=== PATIENT | male | born 1935 | race Caucasian/White ===

== ENCOUNTER 2022-10-17 15:20 | Inpatient (IN) | payer MEDICARE, OTHER ==
[~2022-10-17] VITALS: Ht 175.3 cm; Wt 73.9 kg
[2022-10-17] VITALS (18 sets, daily range): BP systolic 85–162; BP diastolic 38–75
--- NOTE | 2022-10-17 15:25 | NUR ---
BIBRA 100 FROM A SNF FOR INCREASED ALTERED MENTATION X1HOUR, PT IS HYPOTENSIVE, AND WARM TO TOUCH. TEMP IS 100.1 UPON ARRIVAL. PT A&OX0, RESPONSIVE TO PAIN AND SPEECH. ATTACHED TO MONITOR. AWAITING MD MRAIEE.
--- NOTE | 2022-10-17 15:52 | NUR ---
PT TAKEN TO CT VIA [facility]
[2022-10-17] MEDS ORDERED: CEFTRIAXONE 1GM BAG (ER ONLY) 50 ML IV ONE ×2 (15:57→16:00)
--- NOTE | 2022-10-17 15:58 | NUR ---
PT RETURNED FROM CT
[2022-10-17] MEDS ORDERED: IV NS 0.9% 500 ML BAG IV ONE (16:00)
--- NOTE | 2022-10-17 16:00 | NUR ---
X RAY AT BEDSIDE
[2022-10-17 16:06] LABS: BASOPHILS % (AUTO) 0.2 % (0.0-2.0); EOSINOPHILS % (AUTO) 0.1 % (0.0-6.0); HEMATOCRIT 25 % (39-51); HEMOGLOBIN 7.9 g/dL (13.5-17.5); LYMPHOCYTES # (AUTO) 1.4 K/uL (0.8-4.8); LYMPHOCYTES % (AUTO) 8.8 % (20.0-44.0); MEAN CORPUSCULAR HGB CONC 31 g/dl (31.0-36.0); MEAN CORPUSCULAR VOLUME 89 fL (80-96); MONOCYTES # (AUTO) 0.6 K/uL (0.1-1.30); MONOCYTES % (AUTO) 3.6 % (2.0-12.0); NEUTROPHILS # (AUTO) 13.8 K/uL (1.8-8.9); NEUTROPHILS % (AUTO) 87.3 % (43.0-81.0); PLATELET COUNT (AUTO) 253 K/uL (150-450); RED BLOOD CELL COUNT(AUTO) 2.85 MIL/uL (4.5-6.0); WHITE BLOOD COUNT (AUTO) 15.8 K/uL (4.3-11.0)
--- NOTE | 2022-10-17 16:09 | NUR ---
ZONIA COLLECTED AND SENT
[2022-10-17 16:21] LABS: ALANINE AMINOTRANSFERASE 9 U/L (12-78); ALBUMIN 1.8 g/dL (3.4-5.0); ALKALINE PHOSPHATASE 136 U/L (46-116); ASPARTATE AMINOTRANSFERASE 13 U/L (15-37); BILIRUBIN,DIRECT 0.6 mg/dL (0.0-0.2); BILIRUBIN,TOTAL 0.9 mg/dL (0.2-1.0); CALCIUM, SERUM 8.6 mg/dL (8.5-10.1); CARBON DIOXIDE 21 mmol/L (21-32); CHLORIDE 103 mmol/L (98-107); CREATININE 4.2 mg/dL (0.6-1.3); GLUCOSE 108 mg/dL (74-106); POTASSIUM 4.7 mmol/L (3.5-5.1); SODIUM SERUM 135 mmol/L (136-145); TOTAL PROTEIN, SERUM 6.3 g/dL (6.4-8.2); UREA NITROGEN, BLOOD 43 mg/dL (7-18)
--- NOTE | 2022-10-17 16:57 | NUR ---
URINE COLLECTED AND SENT
--- NOTE | 2022-10-17 17:16 | NUR ---
BED GIVEN 253
[2022-10-17] MEDS ORDERED: IV NS 0.9% 1,000 ML BAG IV ONE (17:30)
[2022-10-17] MEDS ORDERED: IV NS 0.9% 250 ML BAG IV ONE (17:30)
--- NOTE | 2022-10-17 17:51 | NUR ---
REPORT GIVEN TO STEPHANIE FOR JAIME
--- NOTE | 2022-10-17 18:10 | NUR ---
Pt admitted to ICU from ER. Urosepsis, HOTN Pt placed on monitor upon arrival. No Resp Distress noted Cont IVF hydration VSS, afebrile. Follow up admitting orders
--- NOTE | 2022-10-17 18:11 | NUR ---
PT TRANSPORTED TO ICU WITH ACLS PROTOCOLS IN PLACE, HANDED OFF TO LYDIA BROWN
[2022-10-17 18:15] LABS: COLOR,URINE AMBER (YELLOW)
[2022-10-17 18:17] LABS: BILIRUBIN,URINE NEGATIVE (NEGATIVE); LEUKOCYTE ESTERASE ,URINE 3+ (NEGATIVE); NITRITE, URINE NEGATIVE (NEGATIVE); PROTEIN,URINE 3+ mg/dl (NEGATIVE); UGLUCOSE NEGATIVE (NEGATIVE); UROBILINOGEN,URINE 0.2 EU/dL (0.2)
[2022-10-17 18:22] LABS: RBC,URINE 81-100 /HPF (0-2)
[2022-10-17 18:23] LABS: BACTERIA,URINE 3+ /HPF (None Seen); SQUAMOUS EPITHELIAL CELL,UR 0-2 /HPF (None Seen); WBC,URINE 51-80 /HPF (0-3)
[2022-10-17] MEDS ORDERED: MORPHINE SULFATE INJ 2 MG/ML DISP.SYRIN IV PRN (18:30)
[2022-10-17] MEDS ORDERED: ACETAMINOPHEN 325 MG TABLET PO PRN (18:30)
[2022-10-17] MEDS ORDERED: ALBUMIN 25% 25 GM in PREMIX 1 EA IV SCH (18:30)
[2022-10-17] MEDS ORDERED: ONDANSETRON HCL/PF 4 MG/2 ML VIAL IVP PRN (18:30)
[2022-10-17] MEDS ORDERED: CEFEPIME 2 GM in IV D5W 100 ML IV ONE (19:00)
[2022-10-17] MEDS: IV NS 0.9% 1,000 ML IV SCH (19:02)
[2022-10-17] MEDS ORDERED: NOREPINEPHRINE 8 MG in IV NS 0.9% 242 ML IV PRN (19:30)
--- NOTE | 2022-10-17 20:00 | NUR ---
Received patient lethargic,confused non verbal non interactive.DX: AMS,UTI and HYPOTENTION.SR with low BP awaiting med from pharmacy.Patient breathing even and unlabored.Saturation 92%-95% on RA.No acute distress noted.FC to gravity Safety precaution maintain.Call light at bedside.Bed Alarm on.Turned and repositioned. Continue monitoring.
[2022-10-17 20:17] LABS: BAND % (MANUAL) 16 % (0.0-5.0); LYMPHOCYTES % (MANUAL) 10 % (16-48); MONOCYTES % (MANUAL) 3 % (0-11.0); NEUTROPHILS % (MANUAL) 71 (42-76)
--- NOTE | 2022-10-17 20:50 | NUR ---
Received call from lab patient Lactic Acid 3.0 message sent to .No orders received.
[2022-10-17] MEDS ORDERED: HEPARIN SODIUM, PORCINE 5000 UNITS/1 ML VIAL SQ SCH (21:00)
[2022-10-18] VITALS (93 sets, daily range): BP systolic 84–140; BP diastolic 42–69
[2022-10-18 04:28] LABS: BASOPHILS % (AUTO) 0.3 % (0.0-2.0); EOSINOPHILS % (AUTO) 0.1 % (0.0-6.0); LYMPHOCYTES # (AUTO) 1.9 K/uL (0.8-4.8); LYMPHOCYTES % (AUTO) 12.4 % (20.0-44.0); MEAN CORPUSCULAR HGB CONC 32 g/dl (31.0-36.0); MEAN CORPUSCULAR VOLUME 87 fL (80-96); MONOCYTES # (AUTO) 0.7 K/uL (0.1-1.30); MONOCYTES % (AUTO) 4.4 % (2.0-12.0); NEUTROPHILS # (AUTO) 12.9 K/uL (1.8-8.9); NEUTROPHILS % (AUTO) 82.8 % (43.0-81.0); PLATELET COUNT (AUTO) 217 K/uL (150-450); RED BLOOD CELL COUNT(AUTO) 2.06 MIL/uL (4.5-6.0); WHITE BLOOD COUNT (AUTO) 15.6 K/uL (4.3-11.0)
[2022-10-18 04:46] LABS: HEMATOCRIT 18 % (39-51); HEMOGLOBIN 5.8 g/dL (13.5-17.5)
[2022-10-18 04:52] LABS: ALANINE AMINOTRANSFERASE 10 U/L (12-78); ALBUMIN 1.6 g/dL (3.4-5.0); ALKALINE PHOSPHATASE 107 U/L (46-116); ASPARTATE AMINOTRANSFERASE 13 U/L (15-37); BILIRUBIN,TOTAL 0.4 mg/dL (0.2-1.0); CALCIUM, SERUM 7.8 mg/dL (8.5-10.1); CARBON DIOXIDE 22 mmol/L (21-32); CHLORIDE 108 mmol/L (98-107); CREATININE 3.7 mg/dL (0.6-1.3); GLUCOSE 113 mg/dL (74-106); MAGNESIUM 1.7 mg/dL (1.8-2.4); PHOSPHORUS 4.2 mg/dL (2.5-4.9); POTASSIUM 4.6 mmol/L (3.5-5.1); SODIUM SERUM 138 mmol/L (136-145); TOTAL PROTEIN, SERUM 5.5 g/dL (6.4-8.2); UREA NITROGEN, BLOOD 45 mg/dL (7-18)
[2022-10-18] MEDS: IV NS 0.9% 1,000 ML IV SCH (05:17)
--- NOTE | 2022-10-18 05:40 | NUR ---
Patient AM labs resulted H/H 5.8.Message sent to DR. Smith with orders received and carried out.No active bleeding noted.VS stable.Turned and repositioned to comfort.IVF infusing well.Adequate urine output no BM noted.Continue to monitor.
--- NOTE | 2022-10-18 06:58 | NUR ---
WOUND CARE CONSULT: PT PRESENTS WITH RAISED LESION TO LEFT HIP AND SACRAL INTACT DEEP TISSUE INJURY, PRESENT ON ADMISSION. DEFER TO PMD FOR LESION, UNKNOWN ETIOLOGY. DISCUSSED SKIN PROTECTION RECOMMENDATIONS WITH NURSING STAFF. JAY SONG. IN AGREEMENT WITH PLAN OF CARE. Addendum: 10/18/22 at 0659 by MADELINE GRIDER WNDNU Amended: Links added.
[2022-10-18] MEDS ORDERED: Z GUARD REMEDY 4 OZ OINT TP PRN (07:00)
--- NOTE | 2022-10-18 07:00 | NUR ---
RN NOTES RECEIVED PT ON BED, DRAWAZY , FOLLOWS COMMAND, CONFUSED , VERBALLY RESPONDING , ON RA, O SAT WNL, NO SOB NOTED, THOMPSON DRAINING TO GRAVITY WITH CLOUDY URINE, IV SITES CDI, IVF AT 75CC/HR RUNNING , SR UP x3. CALL LIGHT WITHIN EASY REACH, BED LOCKED AND IN LOWEST POSITION, CONTINUE TO MONITOR
[2022-10-18 07:32] LABS: HEMOGLOBIN 5.8 g/dL (13.5-17.5)
[2022-10-18] MEDS: DOCUSATE SODIUM LIQ 100 MG/10 ML UDC PO SCH ×3 (08:09→17:03)
[2022-10-18] MEDS: POLYETHYLENE GLYCOL 3350 17 GM POWD.PACK PO SCH ×2 (08:09→08:24)
--- NOTE | 2022-10-18 08:25 | NUR ---
RN NOTES PT IS LETHARGIC , VALERIE RISK FOR ASPIRATION, MORNING PO MEDS HELD PER DR ANGELIKA PENG
--- NOTE | 2022-10-18 09:00 | NUR ---
RN NOTES DR CARNEY NOTIFIED REGRADING MG =1.7 , NOW NEW ORDER RECEIVED
[2022-10-18] MEDS: PANTOPRAZOLE 40 MG VIAL IV SCH ×2 (09:05→17:03)
[2022-10-18] MEDS ORDERED: VANCOMYCIN 1 GM in IV D5W 250ml IV SCH (11:00)
--- NOTE | 2022-10-18 12:00 | NUR ---
RN NOTES FAMILY AT THE BEDSIDE, REQUESTING TO TALK TO MD, DR CARNEY NOTIFIED, PT RECEIVING ONE UNIT OF PRBC, VSS STABLE CONTINUE TO MONITOR .
[2022-10-18] MEDS ORDERED: ACET-2605 PO ×2 (13:05)
[2022-10-18] MEDS ORDERED: LORA-259 PO (13:05)
[2022-10-18] MEDS ORDERED: HYDR-4209 PO (13:05)
[2022-10-18] MEDS ORDERED: FERR325T23 PO (13:05)
[2022-10-18] MEDS ORDERED: BETH50TA2 PO (13:05)
[2022-10-18] MEDS ORDERED: MELA5TAB PO (13:05)
[2022-10-18] MEDS ORDERED: MULT-447 PO (13:05)
[2022-10-18] MEDS ORDERED: MAGN400O6 PO (13:05)
[2022-10-18] MEDS ORDERED: CRAN425C6 PO (13:05)
[2022-10-18] MEDS ORDERED: ENOX40DI SQ (13:05)
[2022-10-18] MEDS ORDERED: METO25TA20 PO (13:05)
[2022-10-18] MEDS ORDERED: DOCU-141 PO (13:05)
[2022-10-18] MEDS ORDERED: CLON1PAT12 TP (13:05)
[2022-10-18] MEDS ORDERED: PANT40TA2 PO (13:05)
[2022-10-18] MEDS ORDERED: ACET-868 PO (13:05)
[2022-10-18] MEDS ORDERED: EPOE200011 SQ (13:05)
[2022-10-18] MEDS ORDERED: ASCO-352 PO (13:05)
[2022-10-18] MEDS ORDERED: CHOL100043 PO (13:05)
[2022-10-18] MEDS ORDERED: ALBU2.5V38 NEB (13:05)
[2022-10-18] MEDS ORDERED: PIPERACILLIN /TAZOBACTAM 2.25 G in IV D5W 50 ML IV ONE (15:00)
[2022-10-18] MEDS: PIPERACILLIN /TAZOBACTAM 2.25 G in IV D5W 50 ML IV SCH ×2 (15:01→20:23)
[2022-10-18 15:50] LABS: BAND % (MANUAL) 8 % (0.0-5.0); LYMPHOCYTES % (MANUAL) 15 % (16-48); MONOCYTES % (MANUAL) 5 % (0-11.0); NEUTROPHILS % (MANUAL) 72 (42-76)
--- NOTE | 2022-10-18 18:19 | NUR ---
RN NOTES PT RECEIVED TWO UNITS OF PRBC ON THIS SHIFT, TOLERATED WELL, ON RA, O2 SAT WNL, THOMPSON DRAINING TO GRAVITY, IV SITE CDI, SR UP x3, CALL LIGHT WITHIN EASY REACH, WILL ENDORSE TO FLUID JET CUTTER OPERATOR NURSE FOR CONTINUITY OF CARE .
--- NOTE | 2022-10-18 19:14 | NUR ---
RN OPENING NOTES RECEIVED PATIENT IN BED, AAO X 2-3, ON ROOM AIR, CONFUSED, BUT CAN FOLLOW COMMANDS. NO SOB/DISTRESS NOTED. THOMPSON CATHETER DRAINING TO GRAVITY WITH YELLOW URINE, IV ACCESS ON BECK INFUSING NS AT 75 ML/HR AND HAS RIGHT HAND S/L. SAFETY MEASURES IN PLACE: BED LOCKED AND IN LOWEST POSITION, CALL LIGHT WITHIN REACH, SIDE RAILS UP X3.
[2022-10-18] MEDS ORDERED: CEFEPIME 1 GM in IV D5W 50 ML IV SCH (20:00)
[2022-10-18 20:27] LABS: HEMOGLOBIN 8.7 g/dL (13.5-17.5)
[2022-10-19] VITALS (39 sets, daily range): BP systolic 106–155; BP diastolic 47–76
[2022-10-19] MEDS: IV NS 0.9% 1,000 ML IV SCH ×3 (02:10→23:55)
[2022-10-19 02:17] LABS: HEMOGLOBIN 8.2 g/dL (13.5-17.5)
[2022-10-19] MEDS: PIPERACILLIN /TAZOBACTAM 2.25 G in IV D5W 50 ML IV SCH ×3 (04:02→20:21)
[2022-10-19 04:28] LABS: BASOPHILS % (AUTO) 0.2 % (0.0-2.0); EOSINOPHILS % (AUTO) 1.8 % (0.0-6.0); HEMATOCRIT 26 % (39-51); HEMOGLOBIN 8.3 g/dL (13.5-17.5); LYMPHOCYTES # (AUTO) 2.4 K/uL (0.8-4.8); LYMPHOCYTES % (AUTO) 19.2 % (20.0-44.0); MEAN CORPUSCULAR HGB CONC 32 g/dl (31.0-36.0); MEAN CORPUSCULAR VOLUME 85 fL (80-96); MONOCYTES # (AUTO) 0.6 K/uL (0.1-1.30); MONOCYTES % (AUTO) 4.5 % (2.0-12.0); NEUTROPHILS # (AUTO) 9.3 K/uL (1.8-8.9); NEUTROPHILS % (AUTO) 74.3 % (43.0-81.0); PLATELET COUNT (AUTO) 212 K/uL (150-450); RED BLOOD CELL COUNT(AUTO) 3.02 MIL/uL (4.5-6.0); WHITE BLOOD COUNT (AUTO) 12.5 K/uL (4.3-11.0)
[2022-10-19 05:07] LABS: ALANINE AMINOTRANSFERASE 16 U/L (12-78); ALBUMIN 1.5 g/dL (3.4-5.0); ALKALINE PHOSPHATASE 110 U/L (46-116); ASPARTATE AMINOTRANSFERASE 18 U/L (15-37); BILIRUBIN,TOTAL 0.5 mg/dL (0.2-1.0); CALCIUM, SERUM 7.9 mg/dL (8.5-10.1); CARBON DIOXIDE 22 mmol/L (21-32); CHLORIDE 109 mmol/L (98-107); CREATININE 2.5 mg/dL (0.6-1.3); GLUCOSE 104 mg/dL (74-106); POTASSIUM 4.3 mmol/L (3.5-5.1); SODIUM SERUM 139 mmol/L (136-145); TOTAL PROTEIN, SERUM 5.4 g/dL (6.4-8.2); UREA NITROGEN, BLOOD 42 mg/dL (7-18)
--- NOTE | 2022-10-19 06:55 | NUR ---
RN CLOSING NOTES PATIENT IN BED, ASLEEP, BUT EASY TO AROUSE, AAO X 2-3, CONFUSED, BUT CAN FOLLOW COMMANDS. ON ROOM AIR, O2 SAT 97%. NO SOB/DISTRESS NOTED. TELE READING SB WITH HR OF 52. IV ACCESS ON BECK INFUSING NS AT 75 ML/HR AND HAS RIGHT HAND S/L. THOMPSON CATHETER DRAINING TO GRAVITY WITH YELLOW URINE, INTACT AND PATENT. ALL DUE MEDS WERE GIVEN AND NEEDS ATTENDED. SAFETY MEASURES MAINTAINED: BED LOCKED AND IN LOWEST POSITION, CALL LIGHT WITHIN REACH, SIDE RAILS UP X3. WILL ENDORSE TO ONCOMING NURSE FOR JAIME.
--- NOTE | 2022-10-19 07:05 | NUR ---
RN note Received patient in bed. GCS [id number]. ramp supervisor showed SB HR 52/min. BP 131/59mmHg. Spo2 95% RA. Cooper is in-situ, draining cloudy and yellowish urine. Right upper arm midline is in place, dry and intact, patent with NS running at 75mL/hr. Temp 98.3. Call scott is placed within reach. Bed is locked and placed in the lowest position. Will continue monitoring and care.
[2022-10-19] MEDS: POLYETHYLENE GLYCOL 3350 17 GM POWD.PACK PO SCH (08:28)
[2022-10-19] MEDS: PANTOPRAZOLE 40 MG VIAL IV SCH ×2 (08:28→16:01)
[2022-10-19] MEDS: DOCUSATE SODIUM LIQ 100 MG/10 ML UDC PO SCH ×2 (08:28→16:01)
[2022-10-19 10:18] LABS: HEMOGLOBIN 8.2 g/dL (13.5-17.5)
[2022-10-19] MEDS: ENSURE ENLIVE 237 ML LIQUID (VANILLA) PO SCH ×2 (13:06→17:30)
[2022-10-19] MEDS: PROSOURCE / PROSTAT (PYXIS) 30 ML UDC GT SCH ×2 (13:06→16:02)
--- NOTE | 2022-10-19 15:35 | NUR ---
RN note \ \ Transported patient to CT for abdomen and pelvis. bus driver/monitor showed SB all along without active complaint.
--- NOTE | 2022-10-19 16:30 | NUR ---
RN note After doctor's assessment, patient is fit for downgrading to telemetry. Patient's son and brother are informed about the transfer. Collected 700mL of cloudy yellowish urine so far. property master showed SB HR 50-52/min, BP WNL. Handover was given to ARNEL Barry, telemetry box was attached and IVF started again.
--- NOTE | 2022-10-19 16:32 | NUR ---
RESTORATIVE REHAB AIDE TRANSFER NOTE RECEIVED PATIENT FROM ICU AFTER DOWNGRADE TO TELE. PATIENT IN BED AWAKE, AOX2 WITH EPISODES OF CONFUSION. PATIENT IS ON ROOM AIR Spo2 96%.PATIENT HAS BECK MIDLINE IN PLACE, DRY, INTACT AND PATENT. NS @75ML/HR. PATIENT HAS A THOMPSON CATHETER DRAINING WITH YELLOWISH URINE. ALL SAFETY MEASURES IN PLACE, BED LOCKED IN LOWEST POSITION, CALL LIGHT WITHIN REACH, SIDE RAILS UP X3. WILL CONTINUE TO MONITOR.
[2022-10-19 18:24] LABS: HEMOGLOBIN 9.4 g/dL (13.5-17.5)
--- NOTE | 2022-10-19 18:39 | NUR ---
MICROECONOMICS PROFESSOR CLOSING NOTES PATIENT IN BED, AWAKE, AO X 2, CONFUSED, BUT CAN FOLLOW COMMANDS. ON ROOM AIR, O2 SAT 96%. NO SOB/DISTRESS NOTED. TELE READING SB WITH HR OF 58. BECK MIDLINE INFUSING NS AT 75 ML/HR . THOMPSON CATHETER DRAINING TO GRAVITY WITH YELLOW URINE, INTACT AND PATENT. SAFETY MEASURES IN PLACE: BED LOCKED AND IN LOWEST POSITION, CALL LIGHT WITHIN REACH, SIDE RAILS UP X3. WILL ENDORSE TO CAR REPAIRER NURSE.
--- NOTE | 2022-10-19 19:29 | NUR ---
RN OPENING NOTES PATIENT IN BED, ASLEEP, BUT EASY TO AROUSE, A/O X 2-3, CONFUSED AND FORGETFUL, BUT CAN FOLLOW COMMANDS. ON ROOM AIR, O2 SAT 97%. NO SOB/DISTRESS NOTED. TELE READING SB WITH HR OF 52. IV ACCESS ON BECK INFUSING NS AT 75 ML/HR AND HAS RIGHT HAND S/L. THOMPSON CATHETER DRAINING TO GRAVITY WITH YELLOW URINE, INTACT AND PATENT. SAFETY MEASURES MAINTAINED: BED LOCKED AND IN LOWEST POSITION, CALL LIGHT WITHIN REACH, SIDE RAILS UP X3.
[2022-10-20] VITALS: BP 153/65
[2022-10-20 02:12] LABS: HEMOGLOBIN 9.9 g/dL (13.5-17.5)
[2022-10-20 04:00] VITALS: BP 155/68
[2022-10-20] MEDS: PIPERACILLIN /TAZOBACTAM 2.25 G in IV D5W 50 ML IV SCH ×3 (04:08→21:36)
[2022-10-20 06:09] LABS: BASOPHILS # (AUTO) 0.1 K/uL (0.0-0.2); BASOPHILS % (AUTO) 0.5 % (0.0-2.0); HEMATOCRIT 30 % (39-51); HEMOGLOBIN 9.4 g/dL (13.5-17.5); LYMPHOCYTES # (AUTO) 2.8 K/uL (0.8-4.8); LYMPHOCYTES % (AUTO) 27.9 % (20.0-44.0); MEAN CORPUSCULAR HGB CONC 32 g/dl (31.0-36.0); MEAN CORPUSCULAR VOLUME 88 fL (80-96); MONOCYTES # (AUTO) 0.6 K/uL (0.1-1.30); MONOCYTES % (AUTO) 6.1 % (2.0-12.0); NEUTROPHILS # (AUTO) 6.3 K/uL (1.8-8.9); NEUTROPHILS % (AUTO) 63.5 % (43.0-81.0); PLATELET COUNT (AUTO) 213 K/uL (150-450); RED BLOOD CELL COUNT(AUTO) 3.37 MIL/uL (4.5-6.0)
[2022-10-20 06:25] LABS: ALANINE AMINOTRANSFERASE 18 U/L (12-78); ALBUMIN 1.5 g/dL (3.4-5.0); ALKALINE PHOSPHATASE 118 U/L (46-116); ASPARTATE AMINOTRANSFERASE 21 U/L (15-37); BILIRUBIN,TOTAL 0.5 mg/dL (0.2-1.0); CARBON DIOXIDE 20 mmol/L (21-32); CHLORIDE 109 mmol/L (98-107); CREATININE 1.7 mg/dL (0.6-1.3); GLUCOSE 100 mg/dL (74-106); POTASSIUM 4.6 mmol/L (3.5-5.1); SODIUM SERUM 137 mmol/L (136-145); TOTAL PROTEIN, SERUM 5.5 g/dL (6.4-8.2); UREA NITROGEN, BLOOD 40 mg/dL (7-18)
[2022-10-20 07:00] VITALS: BP 154/58
--- NOTE | 2022-10-20 08:01 | NUR ---
RN OPENING NOTE RECEIVED PATIENT IN BED AO x 2-3 CONFUSED, ABLE TO RESPONDS PHYSICAL STIMULI. RESPIRATORY EVEN AND UNLABORED IN ROOM AIR. IN NO ACUTE RESPIRATORY DISTRESS OBSERVED. SKIN IS WARM TO TOUCH, KEEP CLEAN/DRY. KEPT ELEVATED HOB FOR ASPIRATION PRECAUTION/ENSURE AIRWAY, ALSO LOWEST BED POSITIONED. BED ALARM IS ON AT ALL THE TIME FOR SAFETY. CALL LIGHT WITHIN REACH, WILL CONTINUE TO MONITOR.
[2022-10-20] MEDS: PANTOPRAZOLE 40 MG VIAL IV SCH (09:32)
[2022-10-20] MEDS: DOCUSATE SODIUM LIQ 100 MG/10 ML UDC PO SCH ×2 (09:32→17:15)
[2022-10-20] MEDS: POLYETHYLENE GLYCOL 3350 17 GM POWD.PACK PO SCH (09:32)
[2022-10-20] MEDS: PROSOURCE / PROSTAT (PYXIS) 30 ML UDC GT SCH ×3 (09:33→17:15)
[2022-10-20] MEDS: ENSURE ENLIVE 237 ML LIQUID (VANILLA) PO SCH ×3 (09:41→17:15)
[2022-10-20 10:22] LABS: HEMOGLOBIN 9.8 g/dL (13.5-17.5)
[2022-10-20 12:00] VITALS: BP 150/69
[2022-10-20] MEDS: IV NS 0.9% 1,000 ML IV SCH (13:22)
[2022-10-20 16:00] VITALS: BP 145/62
--- NOTE | 2022-10-20 17:00 | NUR ---
PATIENT NOTED POSITIVE DVT ON LEFT CEPHALIC, INFORMED DR. CARNEY, NO NEW ORDER AT THIS TIME.
[2022-10-20] MEDS: PANTOPRAZOLE 40 MG/PACK PACK PO SCH (17:15)
--- NOTE | 2022-10-20 18:00 | NUR ---
RN CLOSING NOTE PATIENT RESTING IN BED. IN NO ACUTE DISTRESS OBSERVED. RESPIRATORY EVEN AND UNLABORED IN ROOM AIR, NO SOB OR DESATURATION NOTED. SKIN IS WARM TO TOUCH KEEP CLEAN/DRY. KEPT ELEVATED HOB FOR ENSURE AIRWAY/ASPIRATION PRECAUTION, AND LOWEST BED POSITION. BED ALARM IS ON AT ALL THE TIME FOR SAFETY. CALL LIGHT WITHIN REACH, WILL ENDORSE INDEX EDITOR.
[2022-10-20 18:12] LABS: HEMOGLOBIN 10.1 g/dL (13.5-17.5)
[2022-10-20 20:00] VITALS: BP 146/61
--- NOTE | 2022-10-20 20:01 | NUR ---
RAILROAD PURCHASING AGENT OPENING NOTE PATIENT SLEEPING IN BED, EASILY AWAKENED, PT ALERT/ORIENTED X 2, WITH FORGETFULNESS. PT STABLE ON RA, NO S/S OF DISTRESS OR SOB NOTED, BREATHING EVEN AND UNLABORED. PATIENT ON EXTERNAL BUGGYMAN READING SINUS CASSIDY, HR: 59. BECK MIDLINE INTACT AND INFUSING NS @ 75 ML/HR. THOMPSON CATHETER IN PLACE AND DRAINING YELLOW URINE BY GRAVITY. SAFETY MEASURES IN PLACE: CALL LIGHT WITHIN REACH, SIDE RAILS UP X 3, BED LOCKED IN LOWEST POSITION, HOB ELEVATED, BED ALARM ON. WILL CONTINUE TO MONITOR PATIENT
[2022-10-21] VITALS: BP 147/71
[2022-10-21 03:19] LABS: HEMOGLOBIN 9.7 g/dL (13.5-17.5)
[2022-10-21] MEDS: IV NS 0.9% 1,000 ML IV SCH ×2 (03:23→15:38)
[2022-10-21 04:00] VITALS: BP 153/69
[2022-10-21] MEDS: PIPERACILLIN /TAZOBACTAM 2.25 G in IV D5W 50 ML IV SCH ×3 (05:01→20:20)
[2022-10-21 06:34] LABS: BILIRUBIN,TOTAL 0.4 mg/dL (0.2-1.0); CALCIUM, SERUM 7.4 mg/dL (8.5-10.1); CREATININE 1.2 mg/dL (0.6-1.3); POTASSIUM 4.4 mmol/L (3.5-5.1); TOTAL PROTEIN, SERUM 5.2 g/dL (6.4-8.2)
[2022-10-21 06:46] LABS: ALBUMIN 1.4 g/dL (3.4-5.0)
--- NOTE | 2022-10-21 06:51 | NUR ---
BIOPROCESS ENGINEER NOTE RECEIVED CRITICAL LAB FOR ALBUMIN 1.4, NOTIFIED PLUMBER GASFITTER DR. CARRENO, AWAITING ORDERS
--- NOTE | 2022-10-21 06:57 | NUR ---
TAPE TRANSFERRER CLOSING NOTE PATIENT SLEEPING IN BED, EASILY AWAKENED, PT ALERT/ORIENTED X 1-2, WITH FORGETFULNESS AND CONFUSION. PT STABLE ON RA, NO S/S OF DISTRESS OR SOB NOTED, BREATHING EVEN AND UNLABORED. PATIENT ON EXTERNAL WIDE AREA NETWORK ADMINISTRATOR READING SINUS CASSIDY, HR: 53. BECK MIDLINE INTACT AND INFUSING NS @ 75 ML/HR. THOMPSON CATHETER IN PLACE AND DRAINING YELLOW URINE BY GRAVITY. MEDICATIONS GIVEN ORDERED, PT NEEDS MET THROUGHOUT SHIFT. SAFETY MEASURES IN PLACE: CALL LIGHT WITHIN REACH, SIDE RAILS UP X 3, BED LOCKED IN LOWEST POSITION, HOB ELEVATED, BED ALARM ON. WILL ENDORSE TO DAYSHIFT RN FOR CONTINUITY OF CARE
[2022-10-21 07:00] VITALS: BP 160/61
[2022-10-21 08:12] LABS: BASOPHILS # (AUTO) 0.1 K/uL (0.0-0.2); BASOPHILS % (AUTO) 0.6 % (0.0-2.0); EOSINOPHILS % (AUTO) 2.5 % (0.0-6.0); HEMATOCRIT 32 % (39-51); HEMOGLOBIN 9.9 g/dL (13.5-17.5); LYMPHOCYTES # (AUTO) 3.5 K/uL (0.8-4.8); LYMPHOCYTES % (AUTO) 32.4 % (20.0-44.0); MEAN CORPUSCULAR HGB CONC 31 g/dl (31.0-36.0); MEAN CORPUSCULAR VOLUME 89 fL (80-96); MONOCYTES # (AUTO) 0.7 K/uL (0.1-1.30); MONOCYTES % (AUTO) 6.6 % (2.0-12.0); NEUTROPHILS # (AUTO) 6.2 K/uL (1.8-8.9); NEUTROPHILS % (AUTO) 57.9 % (43.0-81.0); PLATELET COUNT (AUTO) 206 K/uL (150-450); RED BLOOD CELL COUNT(AUTO) 3.59 MIL/uL (4.5-6.0); WHITE BLOOD COUNT (AUTO) 10.7 K/uL (4.3-11.0)
[2022-10-21] MEDS: DOCUSATE SODIUM LIQ 100 MG/10 ML UDC PO SCH ×2 (08:13→16:46)
[2022-10-21] MEDS: POLYETHYLENE GLYCOL 3350 17 GM POWD.PACK PO SCH (08:13)
[2022-10-21] MEDS: PROSOURCE / PROSTAT (PYXIS) 30 ML UDC GT SCH ×3 (08:13→16:46)
[2022-10-21] MEDS: ENSURE ENLIVE 237 ML LIQUID (VANILLA) PO SCH ×3 (08:13→16:46)
[2022-10-21] MEDS: PANTOPRAZOLE 40 MG/PACK PACK PO SCH ×2 (08:13→16:46)
--- NOTE | 2022-10-21 11:24 | NUR ---
PATIENT NOTED ALBUMIN 1.4 AND MD MADE AWARE, THE PATIENT TAKES PRO-STAT ALREADY.
[2022-10-21 12:00] VITALS: BP 160/68
--- NOTE | 2022-10-21 12:20 | NUR ---
PATIENT NOTED DBP 160 BETWEEN 175, DR. GRANT MADE AWARE. NEW ORDER HYDRALAZINE 10MG IV PUSH IF SBP > 160. NOTED AND CARRY OUT.
[2022-10-21] MEDS ORDERED: hydrALAZINE HCL IV 20 MG VIAL IV PRN (12:30)
[2022-10-21 12:39] LABS: EOSINOPHILS % (MANUAL) 2 % (0-4); LYMPHOCYTES % (MANUAL) 35 % (16-48); MONOCYTES % (MANUAL) 7 % (0-11.0); NEUTROPHILS % (MANUAL) 56 (42-76)
[2022-10-21 16:00] VITALS: BP 148/59
--- NOTE | 2022-10-21 18:44 | NUR ---
RN CLOSING NOTE PATIENT RESTING IN BED. IN NO ACUTE DISTRESS OBSERVED. RESPIRATORY EVEN AND UNLABORED IN ROOM AIR, NO SOB OR DESATURATION NOTED. SKIN IS WARM TO TOUCH KEEP CLEAN/DRY. CONTINUE TO IVF AND 800 CC URINE OUT PUT. KEPT ELEVATED HOB FOR ENSURE AIRWAY/ASPIRATION PRECAUTION, AND LOWEST BED POSITION. BED ALARM IS ON AT ALL THE TIME FOR SAFETY. CALL LIGHT WITHIN REACH, WILL ENDORSE MANUFACTURING PROJECT MANAGER.
--- NOTE | 2022-10-21 19:10 | NUR ---
FOUNDRY WORKER GENERAL OPENING NOTE PATIENT IS RESTING IN BED. HE IS ALERT, ORIENTED TO HIS NAME ONLY. PT IS VERY CONFUSED. AO X 1. HE IS ON RA, TOLERATED WELL. NO S/S OF SOB OR DISTRESS. IV ACCESS IS AT HIS R UA, ML, #18G, RUNNING NS @75 ML/HR. IV SITE IS PATENT AND INTACT. PT HAS ANOTHER IV ACCESS AT HIS R WRIST, #22G, SL.FLUSHED WELL WITH 10 CC NS, IV IS PATENT AND INTACT WELL. PT IS ON EXTERNAL PANEL BEATER, ON THE MONITOR,HIS HEART RHYTHM IS SR WITH HR AT 60S. PT HAS THOMPSON CATHETER, DRAINING LIGHT YELLOW COLOR URINE BY GRAVITY FREELY. SAFETY MEASURES ARE IN PLACED: BED IN LOWEST AND LOCKED POSITION; SIDE RAILS UP X 2; CALL LIGHT AND TABLE ARE WITHIN REACH. WILL CONTINUE MONITORING THE PT AND PROVIDE THE CARE PT NEEDS.
[2022-10-21 20:00] VITALS: BP 106/64
[2022-10-22] VITALS: BP 148/68
[2022-10-22 04:00] VITALS: BP 154/61
[2022-10-22] MEDS: PIPERACILLIN /TAZOBACTAM 2.25 G in IV D5W 50 ML IV SCH (04:00)
[2022-10-22] MEDS: IV NS 0.9% 1,000 ML IV SCH (04:13)
[2022-10-22 06:23] LABS: BASOPHILS # (AUTO) 0.1 K/uL (0.0-0.2); BASOPHILS % (AUTO) 0.6 % (0.0-2.0); EOSINOPHILS % (AUTO) 2.3 % (0.0-6.0); HEMATOCRIT 29 % (39-51); HEMOGLOBIN 9.5 g/dL (13.5-17.5); LYMPHOCYTES # (AUTO) 3.4 K/uL (0.8-4.8); LYMPHOCYTES % (AUTO) 29.5 % (20.0-44.0); MEAN CORPUSCULAR HGB CONC 32 g/dl (31.0-36.0); MEAN CORPUSCULAR VOLUME 85 fL (80-96); MONOCYTES # (AUTO) 0.8 K/uL (0.1-1.30); NEUTROPHILS % (AUTO) 60.6 % (43.0-81.0); PLATELET COUNT (AUTO) 231 K/uL (150-450); RED BLOOD CELL COUNT(AUTO) 3.46 MIL/uL (4.5-6.0); WHITE BLOOD COUNT (AUTO) 11.6 K/uL (4.3-11.0)
[2022-10-22 06:42] LABS: ALBUMIN 1.7 g/dL (3.4-5.0); BILIRUBIN,TOTAL 0.4 mg/dL (0.2-1.0); CALCIUM, SERUM 7.7 mg/dL (8.5-10.1); CREATININE 1.1 mg/dL (0.6-1.3); POTASSIUM 4.2 mmol/L (3.5-5.1); TOTAL PROTEIN, SERUM 5.3 g/dL (6.4-8.2)
--- NOTE | 2022-10-22 07:05 | NUR ---
COUNSELING SERVICES DIRECTOR CLOSING NOTE PATIENT IS RESTING IN BED. HE IS ALERT, ORIENTED TO HIS NAME ONLY. PT IS VERY CONFUSED. AO X 1. HE IS ON RA, TOLERATED WELL. NO S/S OF SOB OR DISTRESS. IV ACCESS IS AT HIS R UA, ML, #18G, RUNNING NS @75 ML/HR. PT HAS ANOTHER IV ACCESS AT HIS R WRIST, #22G, SL.FLUSHED WELL WITH 10 CC NS. BOTH IV STIES ARE PATENT AND INTACT. PT IS ON EXTERNAL FITTING ROOM ASSOCIATE, ON THE MONITOR,HIS HEART RHYTHM IS SR WITH HR AT 60S. PT HAS THOMPSON CATHETER, DRAINING LIGHT YELLOW COLOR URINE BY GRAVITY FREELY. SAFETY MEASURES ARE IN PLACED: BED IN LOWEST AND LOCKED POSITION; SIDE RAILS UP X 2; CALL LIGHT AND TABLE ARE WITHIN REACH. WILL ENDORSE NEXT SHIFT NURSE FOR CONTINUING CARE.
--- NOTE | 2022-10-22 07:26 | NUR ---
CESSATION SYSTEMS OUTREACH SPECIALIST OPENING NOTES RECEIVED PT IN BED AWAKE IN NO ACUTE SIGNS OF DISTRESS. A/O X1-2. FORGETFUL AND CONFUSED. ABLE TO MAKE NEEDS KNOWN, DENIES PAIN OR ANY DISCOMFORTS AT THIS TIME. ON ROOM AIR, TOLERATING WELL, BREATHING EVEN AND UNLABORED. ON TELE-MONITOR WITH CURRENT READING OF NSR, HR 61 BPM AT THIS TIME, NO C/O CARDIAC DISTRESS VOICED. PT WITH BECK MIDLINE #18G INTACT WITH IVF OF NS @ 75ML/HR INFUSING WELL. THOMPSON IN PLACE AND DRAINING SLIGHTLY CLOUDY YELLOW URINE VIA GRAVITY. SAFETY MEASURES IN PLACE: BED IN LOWEST LOCKED POSITION, HOB ELEVATED, SIDE-RAILS UP X3, BED ALARM ON AND CALL LIGHT WITHIN REACH. WILL CONTINUE TO MONITOR PT ACCORDINGLY.
[2022-10-22 08:00] VITALS: BP 157/74
[2022-10-22] MEDS: DOCUSATE SODIUM LIQ 100 MG/10 ML UDC PO SCH ×2 (08:31→16:07)
[2022-10-22] MEDS: POLYETHYLENE GLYCOL 3350 17 GM POWD.PACK PO SCH (08:31)
[2022-10-22] MEDS: PANTOPRAZOLE 40 MG/PACK PACK PO SCH ×2 (08:31→16:07)
[2022-10-22] MEDS: ENSURE ENLIVE 237 ML LIQUID (VANILLA) PO SCH ×2 (08:32→12:34)
[2022-10-22] MEDS: PROSOURCE / PROSTAT (PYXIS) 30 ML UDC GT SCH ×3 (08:34→16:07)
[2022-10-22] MEDS ORDERED: CIPR500T5 PO (08:52)
[2022-10-22] MEDS ORDERED: IV NS 0.9% 1,000 ML IV PRN (08:56)
[2022-10-22] MEDS ORDERED: MEROPENEM 1 G in IV NS 0.9% 100 ML IV SCH (09:00)
[2022-10-22 11:14] LABS: BAND % (MANUAL) 4 % (0.0-5.0); EOSINOPHILS % (MANUAL) 2 % (0-4); LYMPHOCYTES % (MANUAL) 20 % (16-48); METAMYELOCYTES % 1 % (0-0); MONOCYTES % (MANUAL) 10 % (0-11.0); MYELOCYTES % 1 % (0-0); NEUTROPHILS % (MANUAL) 62 (42-76)
[2022-10-22] MEDS ORDERED: MERO1VIA23 IV (11:19)
[2022-10-22 12:00] VITALS: BP 157/62
--- NOTE | 2022-10-22 14:57 | NUR ---
RN NOTES PT FOR DC TO [facility] THIS AFTERNOON. CALLED AND REPORT GIVEN TO LYDIA LEHMAN OF [facility] AND VERBALIZED UNDERSTANDING. IRVIN DEL RIO ALREADY INFORMED PT'S SON HERMILA OF PT'S DC BACK TO SNF.
[2022-10-22 16:00] VITALS: BP 122/71
--- NOTE | 2022-10-22 16:51 | NUR ---
RN DISCHARGED NOTES [facility] ST[facility] CONDITION. A/O X2. VERBALLY RESPONSIVE AND ABLE TO MAKE NEEDS KNOWN. FORGETFUL AND CONFUSED ON AND OFF. V/S TAKEN, STABLE AND RECORDED. PHOTOS OF SKIN ISSUES TAKEN FROM PREVIOUS SHIFT AND WAS FILED ON HIS CHART. PT HAS NO BELONGINGS. BECK MIDLINE G#18 NOT REMOVE, PT WILL CONTINUE TO RECEIVED ABX MEROPENEM 1GM IV BID X 7 DAYS MORE AT THE SNF. CALLED AND REPORT GIVEN TO LYDIA LEHMAN EARLIER AND SAID TO LEAVE PT'S THOMPSON CATHETER. TELE-BOX REMOVED AND HANDED BACK TO SPECIALTIES OPERATOR DEION. REPORT AND EXIT FOLDER HANDED TO EMT'S. PT LEFT UNIT @ 0125 VIA [employer] [place] ACCOMPANIED BY 2 EMT'S FROM [facility]. MD AND CHARGE NURSE AWARE OF DISCHARGE.
== END 2022-10-22 16:45 | DRG 871 ==
LOC: ER 15:26 → ICU 17:26 → TELE 10-19 16:19
PROVIDERS: ADMIT Internal Medicine; ATTEND Internal Medicine
PROC: 30233N1 Transfusion of Nonautologous Red Blood Cells into Peripheral Vein, Percutaneous Approach (ICD-10-PCS; principal; 2022-10-18)
PROC: 05H933Z Insertion of Infusion Device into Right Brachial Vein, Percutaneous Approach (ICD-10-PCS; 2022-10-18)
DX: A41.59 Other Gram-negative sepsis (principal); E43 Unspecified severe protein-calorie malnutrition; G92.8 Other toxic encephalopathy; N17.0 Acute kidney failure with tubular necrosis; R65.21 Severe sepsis with septic shock; N39.0 Urinary tract infection, site not specified; E87.20 Acidosis, unspecified; J98.11 Atelectasis; E78.5 Hyperlipidemia, unspecified; F03.90 Unspecified dementia, unspecified severity, without behavioral disturbance, psychotic disturbance, mood disturbance, and anxiety; I13.10 Hypertensive heart and chronic kidney disease without heart failure, with stage 1 through stage 4 chronic kidney disease, or unspecified chronic kidney disease; N18.9 Chronic kidney disease, unspecified; Z20.822 Contact with and (suspected) exposure to COVID-19; K21.9 Gastro-esophageal reflux disease without esophagitis; N40.1 Benign prostatic hyperplasia with lower urinary tract symptoms; R33.8 Other retention of urine; M19.90 Unspecified osteoarthritis, unspecified site; Z86.718 Personal history of other venous thrombosis and embolism; E88.09 Other disorders of plasma-protein metabolism, not elsewhere classified; D64.9 Anemia, unspecified; Z79.01 Long term (current) use of anticoagulants; Z79.51 Long term (current) use of inhaled steroids; Z79.899 Other long term (current) drug therapy; D69.6 Thrombocytopenia, unspecified; Z87.19 Personal history of other diseases of the digestive system; K82.8 Other specified diseases of gallbladder
CPT/HCPCS: 36410; 36415; 70450-TC; 71045-TC; 73030-TC; 80048-TC; 80053-TC; 80076-TC; 81001; 83605-TC; 83735-TC; 84100-TC; 84484-TC; 85025-TC; 85027-TC; 85730-TC; 86850-TC; 87040-TC; 87081-TC; 87086-TC; 92526; 92611-TC; 93970-TC; 93971-TC; A4223; C9113; C9803; G0378; J0360; J0692; J0696; J2185; J2543; J3370; J7030; J7040; J7050; J7060; P9016